=== PATIENT | female | born 1980 | race American Indian/Alaskan Native ===

== ENCOUNTER 2016-03-26 15:24 | Emergency (ER) | payer MEDICAID ==
--- NOTE | 2016-03-26 15:57 | Emergency Department Report ---
Chief Complaint: Back Pain/Injury Stated Complaint: LOWER BACK PAIN Time Seen by Provider: 03/26/16 15:52 - HPI History of Present Illness: 36-year-old female comes in for complaint of severe back pain and spasms. Patient reports this is been going on for 4-5 days. She denies any trauma to the back. She denies any dysuria no hematuria no pain with bowel movement or bowel incontinence. He has a past medical history of hypertension thyroid disease endometriosis hypercholesterolemia history of kidney stones. History of fibromyalgia. Patient is on gabapentin and Cymbalta she is on Benazpril in hydrochlorothiazide. He is on atorvastatin for hypercholesterolemia and vitamin D for vitamin D deficiency. - Exam Vital Signs: Vital Signs 03/26/16 15:36 Temperature 99 F Pulse Rate 110 H Blood Pressure 144/98 O2 Sat by Pulse 97 Oximetry Physical Exam: Patient's alert and oriented 3. Cardiovascular S1-S2 she is tachycardic respiratory clear to auscultation bilateral back right sciatica notch tenderness tenderness to vertebral lumbar sacral area. Extremities had no edema noted in the shins MSE screening note: Focused history and physical exam performed. Due to findings the following was ordered: CBC CMP serum ordered as well as a UA ED Disposition for MSE Condition: Stable
[2016-03-26 16:57] LABS: Blood Urea Nitrogen 8 mg/dL (7-17); Calcium 9.8 mg/dL (8.4-10.2); Carbon Dioxide 31 mmol/L (22-30); Chloride 95.7 mmol/L (98-107); Glucose 114 mg/dL (65-100); Potassium 4.4 mmol/L (3.6-5.0); Sodium 139 mmol/L (137-145)
[2016-03-26 16:59] LABS: Anion Gap 17 mmol/L
[2016-03-26 17:16] LABS: Bacteria,Urine 1+ /HPF (Negative); Bilirubin,Urine NEG (Negative); Blood,Urine NEG (Negative); Ketones,Urine NEG (Negative); Leukocyte Esterase,Urine SM (Negative); Mucus,Urine 1+ /HPF; Nitrite,Urine NEG (Negative); Protein,Urine <15 mg/dL mg/dL (Negative); Urobilinogen,Urine < 2.0 mg/dL (<2.0)
[2016-03-27 00:09] VITALS: BP 172/109
[2016-03-27] MEDS ORDERED: DELTASONE PO ONE (01:24)
[2016-03-27] MEDS ORDERED: PERCOCET 5/325 PO ONE (01:24)
--- NOTE | 2016-03-27 01:33 | Emergency Department Report ---
ED Back Pain/Injury HPI - General Chief Complaint: Back Pain/Injury Stated Complaint: LOWER BACK PAIN Time Seen by Provider: 03/26/16 15:52 Source: patient Limitations: No Limitations - History of Present Illness Initial Comments: 36-year-old female presents to the emergency department complaining of back pain. Patient reports 4 days of lower back pain that has begun to radiate down her right leg. Patient denies injury. Pain is described as tightness. She denies numbness or tingling. There are no other complaints. MD Complaint: back pain -: Gradual, days(s) (4) Similar Symptoms Previously: Yes Place: home Radiation: right leg Severity: severe Severity scale (0 -10): 8 Quality: aching Consistency: constant Improves With: none Worsens With: none Context: unknown Associated Symptoms: denies other symptoms - Related Data Home Medications Medication Instructions Recorded Confirmed Last Taken AtorvaSTATin [Lipitor] 40 mg PO DAILY 03/27/16 03/27/16 Unknown Benazepril/Hydrochlorothiazide 1 tab PO DAILY 03/27/16 03/27/16 Unknown [Benazepril-Hctz 20-25 mg] Duloxetine HCl [Cymbalta] 60 mg PO DAILY 03/27/16 03/27/16 Unknown Gabapentin [Neurontin] 800 mg PO Q8H 03/27/16 03/27/16 Unknown Vit D3/Folic Acid/B2/B6/B12 1 tab PO DAILY 03/27/16 03/27/16 Unknown [Folgard Tablet] Previous Rx's Medication Instructions Recorded Last Taken Type Oxycodone HCl/Acetaminophen 1 tab PO Q4-6H PRN #30 tablet 03/27/16 Unknown Rx [Percocet 10/325 mg] Prednisone [predniSONE 10 mg 10 mg PO .TAPER #1 tab.ds.pk 03/27/16 Unknown Rx (6-Day Pack, 21 Tabs)] Allergies Allergy/AdvReac Type Severity Reaction Status Date / Time No Known Allergies Allergy Verified 03/26/16 15:44 ED Review of Systems ROS: Stated complaint: LOWER BACK PAIN Other details as noted in HPI Comment: All other systems reviewed and negative Musculoskeletal: back pain ED Past Medical Hx - Past Medical History Previous Medical History?: Yes Hx Hypertension: Yes Additional medical history: cholesterol. Fibromyalgia - Surgical History Past Surgical History?: Yes Hx Cholecystectomy: Yes Additional Surgical History: wrist, endometriosis, left ovary removed - Family History Family history: no significant - Social History Smoking Status: Never Smoker Substance Use Type: None - Medications Home Medications: Home Medications Medication Instructions Recorded Confirmed Last Taken Type AtorvaSTATin [Lipitor] 40 mg PO DAILY 03/27/16 03/27/16 Unknown History Benazepril/Hydrochlorothiazide 1 tab PO DAILY 03/27/16 03/27/16 Unknown History [Benazepril-Hctz 20-25 mg] Duloxetine HCl [Cymbalta] 60 mg PO DAILY 03/27/16 03/27/16 Unknown History Gabapentin [Neurontin] 800 mg PO Q8H 03/27/16 03/27/16 Unknown History Oxycodone HCl/Acetaminophen 1 tab PO Q4-6H PRN #30 tablet 03/27/16 Unknown Rx [Percocet 10/325 mg] Prednisone [predniSONE 10 mg 10 mg PO .TAPER #1 tab.ds.pk 03/27/16 Unknown Rx (6-Day Pack, 21 Tabs)] Vit D3/Folic Acid/B2/B6/B12 1 tab PO DAILY 03/27/16 03/27/16 Unknown History [Folgard Tablet] ED Physical Exam - General Limitations: No Limitations General appearance: alert, in no apparent distress - Head Head exam: Present: atraumatic, normocephalic - Eye Eye exam: Present: normal appearance, PERRL, EOMI - ENT ENT exam: Present: normal exam, normal orophraynx, mucous membranes moist - Neck Neck exam: Present: normal inspection, full ROM. Absent: tenderness - GI/Abdominal GI/Abdominal exam: Present: soft, normal bowel sounds. Absent: distended, tenderness - Extremities Exam Extremities exam: Present: normal inspection, full ROM. Absent: tenderness - Back Exam Back exam: Present: normal inspection, full ROM, tenderness (right lumbar tenderness to palpation. Tenderness to palpation of the right sacroiliac joint. Palpation reproduces the pain radiating down her leg.) - Neurological Exam Neurological exam: Present: alert, oriented X3. Absent: motor sensory deficit - Skin Skin exam: Present: warm, dry, intact ED Course Vital Signs 03/26/16 03/26/16 03/27/16 15:36 22:27 00:09 Temperature 99 F 98.4 F 98.4 F Pulse Rate 110 H 102 H 94 H Respiratory 18 18 Rate Blood Pressure 144/98 146/99 Blood Pressure 172/109 [Right] O2 Sat by Pulse 97 100 99 Oximetry 03/27/16 00:33 Temperature Pulse Rate Respiratory 18 Rate Blood Pressure Blood Pressure [Right] O2 Sat by Pulse 99 Oximetry ED Medical Decision Making - Lab Data Result diagrams: 03/26/16 16:20 - Medical Decision Making Laboratory results reviewed and discussed with the patient. Patient will be discharged home at this time to follow up with her primary care physician. - Differential Diagnosis low back pain, sciatica, UTI Critical care attestation.: If time is entered above; I have spent that time in minutes in the direct care of this critically ill patient, excluding procedure time. ED Disposition Clinical Impression: Sciatica of right side Disposition: DISCHARGED TO HOME OR SELFCARE Is pt being admited?: No Condition: Stable Instructions: Sciatica (ED) Prescriptions: Oxycodone HCl/Acetaminophen [Percocet 10/325 mg] 1 tab PO Q4-6H PRN #30 tablet PRN Reason: Pain Prednisone [predniSONE 10 mg (6-Day Pack, 21 Tabs)] 10 mg PO .TAPER #1 tab.ds.pk Referrals: PRIMARY CARE, [Primary Care Provider] - 3-5 Days Time of Disposition: 01:41
== END 2016-03-27 02:03 | disposition home or self-care (01) ==
LOC: ED 15:24
DX: M54.31 Sciatica, right side (principal); I10 Essential (primary) hypertension; M79.7 Fibromyalgia
CPT/HCPCS: 36415; 80048; 81001; 84702; 99283; J7512

== ENCOUNTER 2016-04-07 23:41 | Emergency (ER) | payer MEDICAID ==
[2016-04-08 01:39] LABS: Basophils % (Auto) 0.5 % (0.0-1.8); Eosinophils % (Auto) 1.2 % (0.0-4.3); Hematocrit 40.3 % (30.3-42.9); Hemoglobin 13.3 gm/dl (10.1-14.3); Mean Corpuscular HGB Conc 33 % (30-34); Mean Corpuscular Hemoglobin 27 pg (28-32); Mean Corpuscular Volume 83 fl (79-97); Platelet Count 308 K/mm3 (140-440); Red Blood Count 4.84 M/mm3 (3.65-5.03); Red Cell Distribution Width 13.5 % (13.2-15.2); White Blood Count 16.7 K/mm3 (4.5-11.0)
[2016-04-08 02:08] LABS: BUN/Creatinine Ratio 11.42; Blood Urea Nitrogen 8 mg/dL (7-17); Carbon Dioxide 27 mmol/L (22-30); Chloride 98.1 mmol/L (98-107); Glucose 87 mg/dL (65-100); Potassium 4.2 mmol/L (3.6-5.0); Sodium 143 mmol/L (137-145)
[2016-04-08 02:12] LABS: Anion Gap 22 mmol/L
[2016-04-08] MEDS ORDERED: TORADOL IM ONE (09:43)
--- NOTE | 2016-04-08 09:51 | Emergency Department Report ---
HPI - General Chief Complaint: Chest Pain - HPI HPI: Chief complaint: Back pain, right leg pain, chest pain and neck pain HPI: Patient is a 36-year-old female with a history of low back pain with a pinched nerve as well as sciatica, previous history of neck pain and fibromyalgia who was seeing a body painter in [place] for the last 2 years for the same complaints. Patient was seen here on the and was given 30 Percocet 10 and has taken all of them. Patient has been to see a primary care doctor who was waiting to get her medical records before prescribing her any pain medication. Patient states she has an appointment in May with a body painter at [facility] but is unable to tolerate the pain. Patient also complains of 2 days of anterior chest pain. She states the pain is sharp and dull and is in a strip across her upper anterior chest and a second strip below her breasts. Patient states it only lasts for several minutes and is not accompanied by any shortness of breath, nausea or diaphoresis. Patient states if she drinks a Coke and belches the pain improves in her chest. Patient has a history of hypertension and elevated cholesterol. Mode of arrival: private car Source: Patient old chart Began: Patient states she's had back pain for 2 weeks but has had chronic back pain for 2 years Duration: See above Context: See above Quality: See above Severity: Chest is currently 0 out of 10, and back and leg pain is 8-9 out of 10 Improved with: See above Worsened with: Back pain worse with walking Associated signs and symptoms: No cough or cold fever nausea vomiting or diarrhea. No shortness breath ED Past Medical Hx - Past Medical History Previous Medical History?: Yes Hx Hypertension: Yes Additional medical history: cholesterol. Fibromyalgia - Surgical History Past Surgical History?: Yes Hx Cholecystectomy: Yes Additional Surgical History: wrist, endometriosis, left ovary removed - Social History Smoking Status: Never Smoker Substance Use Type: None - Medications Home Medications: Home Medications Medication Instructions Recorded Confirmed Last Taken Type AtorvaSTATin [Lipitor] 40 mg PO DAILY 03/27/16 03/27/16 Unknown History Benazepril/Hydrochlorothiazide 1 tab PO DAILY 03/27/16 03/27/16 Unknown History [Benazepril-Hctz 20-25 mg] Duloxetine HCl [Cymbalta] 60 mg PO DAILY 03/27/16 03/27/16 Unknown History Gabapentin [Neurontin] 800 mg PO Q8H 03/27/16 03/27/16 Unknown History Prednisone [predniSONE 10 mg 10 mg PO .TAPER #1 tab.ds.pk 03/27/16 Unknown Rx (6-Day Pack, 21 Tabs)] Vit D3/Folic Acid/B2/B6/B12 1 tab PO DAILY 03/27/16 03/27/16 Unknown History [Folgard Tablet] Oxycodone HCl/Acetaminophen 1 tab PO Q4-6H PRN #10 tablet 04/08/16 Unknown Rx [Percocet 10/325 mg] ED Review of Systems ROS: Stated complaint: BACK/RT LEG PAIN/CHEST PAIN Other details as noted in HPI ROS Constitutional: No fever ENT: No uri symptoms Cardiovascular: chest pain Respiratory: No sob or cough GI: No nausea vomiting or diarrhea : No dysuria frequency or urgency, Skin: No rash Neuro: No focal weakness or numbness Psych: No depression Yovanny/lymph: No edema Physical Exam - Physical Exam Vital Signs: Vital Signs 04/08/16 04/08/16 00:44 04:47 Temperature 98.5 F 99.1 F Pulse Rate 102 H 111 H Respiratory 20 20 Rate Blood Pressure 149/103 Blood Pressure 150/102 [Left] O2 Sat by Pulse 97 98 Oximetry Physical Exam: GENERAL: The patient is well-developed well-nourished . HEENT: Normocephalic. Atraumatic. Extraocular motions are intact. Patient has moist mucous membranes. Cervical spine nontender NECK: Supple. No meningitic signs are noted. There is no adenopathy noted. CHEST/LUNGS: Clear to auscultation. There is no respiratory distress noted. Anterior chest wall slightly tender reproducing pain. HEART/CARDIOVASCULAR: Regular. There is no tachycardia. There is no gallop rub or murmur. ABDOMEN: Abdomen is soft, nontender. Patient has normal bowel sounds. There is no abdominal distention. SKIN: There is no rash. There is no edema. There is no diaphoresis. NEURO: The patient is awake, alert, and oriented. The patient is cooperative. The patient has no focal neurologic deficits. The patient has normal speech. MUSCULOSKELETAL: There is no point tenderness to patient's lumbar spine. Straight leg raise negative. There is no limitation range of motion. There is no evidence of acute injury. ED Course Vital Signs 04/08/16 04/08/16 00:44 04:47 Temperature 98.5 F 99.1 F Pulse Rate 102 H 111 H Respiratory 20 20 Rate Blood Pressure 149/103 Blood Pressure 150/102 [Left] O2 Sat by Pulse 97 98 Oximetry - Reevaluation(s) Reevaluation #1: 04/08/16 09:53 Patient [address] herself here and was therefore given a shot of Toradol 60 mg IM. ED Medical Decision Making - Lab Data Result diagrams: 04/08/16 01:18 04/08/16 01:18 Laboratory Tests 03/26/16 03/26/16 04/08/16 16:20 16:44 01:18 Troponin T < 0.010 HCG, Quant < 2 Ur Leukocyte Esterase Sm Urine WBC (Auto) 7.0 H Urine RBC (Auto) 6.0 U Epithel Cells (Auto) 9.0 Urine Bacteria (Auto) 1+ 04/08/16 04/08/16 04:53 06:46 Troponin T < 0.010 < 0.010 HCG, Quant Ur Leukocyte Esterase Urine WBC (Auto) Urine RBC (Auto) U Epithel Cells (Auto) Urine Bacteria (Auto) - EKG Data -: EKG Interpreted by Me EKG shows normal: sinus rhythm Rate: normal (100) - EKG Data When compared to previous EKG there are: previous EKG unavailable Interpretation: normal EKG Critical care attestation.: If time is entered above; I have spent that time in minutes in the direct care of this critically ill patient, excluding procedure time. ED Disposition Clinical Impression: Sciatica of right side Chronic pain Qualifiers: Chronic pain type: other chronic pain Qualified Code(s): G89.29 - Other chronic pain Disposition: DISCHARGED TO HOME OR SELFCARE Is pt being admited?: No Does the pt Need Aspirin: No Condition: Stable Instructions: Sciatica (ED), Chronic Back Pain (ED) Prescriptions: Oxycodone HCl/Acetaminophen [Percocet 10/325 mg] 1 tab PO Q4-6H PRN #10 tablet PRN Reason: Pain Referrals: PRIMARY CARE, [Primary Care Provider] - 3-5 Days Time of Disposition: 09:54
[2016-04-08 10:48] VITALS: BP 147/65
== END 2016-04-08 10:33 | disposition home or self-care (01) ==
LOC: ED 23:41
DX: M54.31 Sciatica, right side (principal); G89.29 Other chronic pain; I10 Essential (primary) hypertension; E78.00 Pure hypercholesterolemia, unspecified
CPT/HCPCS: 36415; 80048; 84484; 85025; 93005; 93010; 96372; 99284; J1885

== ENCOUNTER 2018-08-10 07:49 | Outpatient (CLI) | payer OTHER ==
--- NOTE | 2018-08-10 08:45 | XRay Report ---
AP AND LATERAL LUMBOSACRAL SPINE: History: Back pain from accident, hypertension, disability exam. The vertebral bodies are well mineralized and normal in alignment and vertebral height with well preserved interspace distances. The visualized portions of the posterior elements are normal. IMPRESSION: Normal study.
== END 2018-08-10 07:50 | disposition home or self-care (01) ==
LOC: XRAY 07:49
PROVIDERS: ATTEND Internal Medicine
DX: Z02.71 Encounter for disability determination (principal); I10 Essential (primary) hypertension; M54.5 Low back pain; V89.2XXA Person injured in unspecified motor-vehicle accident, traffic, initial encounter; Y93.89 Activity, other specified; Y92.89 Other specified places as the place of occurrence of the external cause; Y99.8 Other external cause status
CPT/HCPCS: 72100